=== PATIENT | male | born 1960 | race Caucasian/White ===

== ENCOUNTER 2021-02-22 10:49 | Inpatient (IN) | payer MEDICAID, OTHER ==
[~2021-02-22] VITALS: Ht 165.1 cm; Wt 56.1 kg
[2021-02-22 13:24] LABS: BASOPHILS % (AUTO) 0.5 % (0-1); EOSINOPHILS # (AUTO) 0.2 X10'3 (0-0.9); EOSINOPHILS % (AUTO) 2.3 % (0-6); HEMATOCRIT 41.3 % (42.0-52.0); HEMOGLOBIN 14.1 g/dl (14.0-17.9); LYMPHOCYTES # (AUTO) 1.4 X10'3 (1.1-4.8); MEAN CORPUSCULAR HEMOGLOBIN 33.2 PG (27.0-31.0); MEAN CORPUSCULAR HGB CONC 34.1 g/dL (33.0-36.5); MEAN CORPUSCULAR VOLUME 97.5 FL (78-98); MEAN PLATELET VOLUME 7.4 FL (7.4-10.4); MONOCYTES # (AUTO) 0.5 X10'3 (0-0.9); MONOCYTES % (AUTO) 6.8 % (2-12); NEUTROPHILS # (AUTO) 5.3 X10'3 (1.8-7.7); NEUTROPHILS % (AUTO) 71.4 % (42-75); PLATELET COUNT 272 X10'3 (140-440); RED BLOOD COUNT 4.24 X10'6 (4.70-6.10); RED CELL DISTRIBUTION WIDTH 13.9 % (11.5-14.5); WHITE BLOOD COUNT 7.4 X10'3 (4.5-11.0)
[2021-02-22 13:37] LABS: ALANINE AMINOTRANSFERASE 24 U/L (12-78); ALBUMIN 3.9 G/DL (3.4-5.0); ALBUMIN/GLOBULIN RATIO 1.1 (1.1-1.5); ALKALINE PHOSPHATASE 41 IU/L (46-116); ANION GAP 8 (8-16); ASPARTATE AMINO TRANSFERASE 28 U/L (10-37); BILIRUBIN,TOTAL 0.2 MG/DL (0.1-1.0); BLOOD UREA NITROGEN 16 MG/DL (7-18); BUN/CREATININE RATIO 16.8 (5.4-32.0); CALCIUM 8.6 MG/DL (8.5-10.1); CHLORIDE 111 MMOL/L (99-107); CREATININE 0.95 MG/DL (0.60-1.10); GLUCOSE 87 MG/DL (70-104); POTASSIUM 3.8 MMOL/L (3.5-5.1); SODIUM 147 MMOL/L (135-145); TOTAL CARBON DIOXIDE 27.9 MMOL/L (24-32); TOTAL PROTEIN 7.4 G/DL (6.4-8.2); eGFR 81 ML/MIN
[2021-02-22 13:44] LABS: ETHANOL 0.049 GM/DL (0.0-0.010)
--- NOTE | 2021-02-22 16:31 | NUR ---
Received patient to OF at 1610. Pt ambulated independently to bed #26. Pt presents as anxious, but is calm. Pt changed into green scrubs and belongings list completed. Pt was able to void for U/A, covid swab collected at this time. Addendum: 02/22/21 at 1643 by MICHAELA Pt reports having Covid 3 months ago.
[2021-02-22 16:47] LABS: URINE AMPHETAMINE SCREEN NEGATIVE (Neg); URINE BARBITUATE SCREEN NEGATIVE (Neg); URINE BENZODIAZEPINES SCREEN NEGATIVE (Neg); URINE CANNABINOID SCREEN NEGATIVE (Neg); URINE COCAINE SCREEN NEGATIVE (Neg); URINE METHADONE SCREEN NEGATIVE (Neg); URINE OPIATE SCREEN NEGATIVE (Neg); URINE PHENCYCLIDINE SCREEN NEGATIVE (Neg)
[2021-02-22 17:21] LABS: CLARITY,URINE CLEAR (Clear); COLOR,URINE YELLOW (Yellow); GLUCOSE, URINE NEGATIVE (Neg); PROTEIN,URINE TRACE mg/dl (Neg); UA COLLECTION TYPE VOIDED
[2021-02-22 17:22] LABS: KETONES,URINE NEGATIVE (Neg); LEUKOCYTE ESTERASE ,URINE NEGATIVE (Neg); NITRITES, URINE NEGATIVE (Neg); OCCULT BLOOD,URINE MODERATE (Neg); UROBILINOGEN,URINE 0.2 E.U/dL (0.2-1.0)
[2021-02-22 17:26] LABS: WBC,URINE 0-4 /HPF (0-4)
[2021-02-22 17:27] LABS: BACTERIA,URINE NONE SEEN /HPF (Neg); MUCUS STRANDS MANY /LPF (Neg); SQUAMOUS EPITHELIAL CELL,UR FEW /LPF (FEW)
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
--- NOTE | 2021-02-22 19:31 | NUR ---
Pt lying awake in bed with mask on. Pt is calm.
--- NOTE | 2021-02-22 19:34 | NUR ---
PACKET FAXED TO [facility].
[2021-02-22] MEDS ORDERED: NO HOME MEDS (20:13)
--- NOTE | 2021-02-23 01:38 | NUR ---
Pt moved to bed 15. Room safety maintained and all hazards secured. Pt resting. Sitter nearby.
--- NOTE | 2021-02-23 03:01 | NUR ---
Pt appears to be resting comfortably. Sitter nearby.
--- NOTE | 2021-02-23 04:56 | NUR ---
Pt resting. No apparent distress. Sitter nearby.
--- NOTE | 2021-02-23 07:40 | NUR ---
Moved pt from main ER to ER overflow at 0615. Pt settled in nicely and was cooperative with am assessment. Pt tearful and states he is very sad and depressed and does endorse S.I.
[2021-02-23] MEDS ORDERED: nicotine 21mg patch - 24 hr TD SCH (08:05)
--- NOTE | 2021-02-23 08:11 | NUR ---
updated facesheet sent to [facility] [id number]
--- NOTE | 2021-02-23 09:00 | NUR ---
Pt currently sleeping. Pt awoke and had breakfast and was cooperative with assessment by [facility].
--- NOTE | 2021-02-23 11:00 | NUR ---
Pt quietly sitting on edge of bed without complaints.
--- NOTE | 2021-02-23 13:00 | NUR ---
Pt sitting up eating lunch. No complaints.
[2021-02-23] MEDS ORDERED: mag hydrox/Alum hydrox/simeth 30ml oral suspension PO PRN (16:15)
[2021-02-23] MEDS ORDERED: magnesium hydroxide 30ml (MOM) UD suspension PO PRN (16:15)
[2021-02-23] MEDS ORDERED: acetaminophen 325mg tablet PO PRN ×2 (16:15)
[2021-02-23] MEDS ORDERED: loperamide 2mg capsule PO PRN (16:15)
[2021-02-23] MEDS ORDERED: traZODone 50mg tablet PO PRN (16:15)
[2021-02-23 16:30] VITALS: BP 168/86
--- NOTE | 2021-02-23 16:33 | NUR ---
Admission note: Pt admitted today to [facility] on a 5150 for DTS at 1602 escorted by security. Pt reports that he is "Depressed and suicidal". Pt states "I guarantee if I leave the hospital I will kill myself. I will overdose on pills." Pt just moved to [place] from [place]. Pt moved in with his ex girlfriend and her . Pt planned to overdose on benadryl. Pt has attempted suicide several times before. Pt has history of depression. Pt has been off of his antidepressants for a year. Addendum: 02/23/21 at 1804 by Taylor Nance RN Pt. scores as a high risk on the [employer] Suicide Risk Assessment, however he is able to contract for safety on the unit. This was endorsed to STEVEN Vail who ordered Q 15 min safety checks. Per STEVEN Vail, ILANA ordered.
[2021-02-23] MEDS: acetaminophen 325mg tablet PO PRN (16:56)
[2021-02-23] MEDS ORDERED: FLU VACC QS2021-22(6MOS UP)/PF 60 MCG/0.5 ML SYRINGE IM ONE (17:55)
[2021-02-23] MEDS: LORazepam 1 MG tablet PO PRN (18:24)
[2021-02-23] MEDS ORDERED: COVID-19 VACC, MRNA(PFIZER)/PF--BNT162b2 syringe IMVAC ONE (19:00)
[2021-02-23 20:00] VITALS: BP 131/85
[2021-02-23] MEDS: NICOTINE POLACRILEX 2 MG LOZENGE BC PRN (21:48)
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
[2021-02-24] MEDS: nicotine 21mg patch - 24 hr TD SCH (07:46)
[2021-02-24] MEDS: NICOTINE POLACRILEX 2 MG LOZENGE BC PRN ×3 (07:46→19:55)
--- NOTE | 2021-02-24 07:47 | NUR ---
FLU VACCINE NOT ADMINISTERED DUE TO PT HAVING FIRST COVID SHOT YESTERDAY. PT STATES, "I THOUGHT ABOUT IT LAST NIGHT AND THINK I SHOULD WAIT A FEW DAYS."
[2021-02-24 08:00] VITALS: BP 104/70
[2021-02-24 10:49] LABS: HEMOGLOBIN A1C 5.1 % (4.5-6.2)
[2021-02-24 10:59] LABS: CHOL/HDL RATIO 3.2 (0.00-4.99); CHOLESTEROL 195 MG/DL (0-200); HDL CHOLESTEROL 61 MG/DL (35-60); LDL CHOLESTEROL 104 MG/DL (50-100); TRIGLYCERIDES 108 MG/DL (20-135)
[2021-02-24] MEDS: LORazepam 1 MG tablet PO PRN (10:59)
[2021-02-24] MEDS ORDERED: sertraline 50mg tablet PO ONE (14:05)
--- NOTE | 2021-02-24 15:52 | NUR ---
Nursing Progress Note: Legal hold: 5150 Client on involuntary status for DTS Report received from nurse, OTTO Anaya with use of SBAR Why they are here: Pt admitted to [facility] for [facility] on a 5150 for DTS from the ER. Pt reports that he is "Depressed and suicidal". Pt states "I guarantee if I leave the hospital I will kill myself. I will OD on pills." Pt just moved to [place] from [place]. Pt moved in with his ex-girlfriend and her . Pt planned to overdose on Benadryl. Pt has attempted suicide several times before. Pt has history of depression. Pt has been off of his antidepressants for a year. Assessment What has happened this shift: Pt observed at the start of the shift pacing halls. He states, Just waiting for some coffee. Pt given coffee as requested. Pt later observed in the dayroom socializing with peers. CIWA completed for this shift. Pt reports, I have never been an alcoholic in fact I rarely drink. Pt. does report some anxiety, PRN Ativan administered with effectiveness. Pt started on a low dose of Zoloft to address his depression. Education provided. SI/HI: denies A/VH: denies Sleep: Pt slept after lunch ADL's: Independent Group attendance: N/A Were meds taken: Yes Any med S/E: N/A Mental Status Exam Appearance: Short, thin, elderly man with brown hair, nicely dressed jeans and a t-shirt, clean. Eye contact: Good Behavior: Cooperative, some anxiety Speech: audible, normal rate and rhythm Mood: Pleasant Affect: Blunted Thought process: Linear Thought Content: Perseveration on family left in [place] Cognition: A&O X4 Insight: Poor Judgment: Poor Interventions PRN's used: Ativan and Imodium Therapeutic interventions: Introduced self and established rapport, maintained a safe and supportive environment, ensured contract for safety, provided clear and simple instructions, monitored pt. using CIWA, and maintained Q 15min safety checks. Restraints/seclusion/emergency medication: N/A Justification of Continued Inpatient Treatment: Pt. requires interruption of current crisis, medication adjustments, and a safe and therapeutic environment.
[2021-02-24 19:00] VITALS: BP 134/85
[2021-02-24] MEDS: acetaminophen 325mg tablet PO PRN (19:55)
--- NOTE | 2021-02-24 23:58 | NUR ---
Nursing Progress Note: Legal hold: 5150 Client on involuntary status for DTS Report received from OTTO Espinal with use of SBAR Why they are here: Pt admitted to [facility] for [facility] on a 5150 for DTS from the ER. Pt reports that he is "Depressed and suicidal". Pt states "I guarantee if I leave the hospital I will kill myself. I will OD on pills." Pt just moved to [place] from [place]. Pt moved in with his ex-girlfriend and her . Pt planned to overdose on Benadryl. Pt has attempted suicide several times before. Pt has history of depression. Pt has been off of his antidepressants for a year. Assessment What has happened this shift: Patient observed laying in bed at the beginning of shift. Pleasant and cooperative with care; no scheduled medication this shift. CIWA discontinued per STEVEN Li. Patient denies SI, HI, A/VH; reports "just helpless and hopeless." Patient continued to explain he understands people are trying to help him but he feels that isn't doing any good. Patient does not wish to go back to previous living situations but explained, "I'll have to do whatever I have to." Patient briefly walked the unit; received PRN Nicotine lozenge and Tylenol per request. He is observed sleeping and does not appear to be having difficulty. SI/HI: Denies A/VH: Denies Sleep: Refer to sleep assessment ADL's: Independent Group attendance: NA Were meds taken: Yes Any med S/E: None observed or reported Mental Status Exam Appearance: Neat and appropriately dressed Eye contact: Good Behavior: Pleasant and cooperative, isolative Speech: Clear, audible, normal rate and rhythm Mood: "Helpless and hopeless" Affect: Depressed Thought process: Linear Thought Content: Meeting needs, not wanting to go back to previous living situations Cognition: A&O X4 Insight: Poor Judgment: Poor Interventions PRN's used: Tylenol and Nicotine lozenge Therapeutic interventions: Introduced self and established rapport, maintained a safe and supportive environment, ensured contract for safety, provided clear and simple instructions, monitored pt. using CIWA, and maintained Q 15min safety checks. Restraints/seclusion/emergency medication: NA Justification of Continued Inpatient Treatment: Pt. requires interruption of current crisis, medication adjustments, and a safe and therapeutic environment.
[2021-02-25 07:44] VITALS: BP 116/71
[2021-02-25] MEDS: nicotine 21mg patch - 24 hr TD SCH (07:44)
[2021-02-25] MEDS: sertraline 50mg tablet PO SCH (08:00)
[2021-02-25] MEDS ORDERED: hydrOXYzine 25 MG tablet PO PRN (14:35)
--- NOTE | 2021-02-25 15:28 | NUR ---
Nursing Progress Note: Legal hold: 5150 Client on involuntary status for DTS Report received from nurse, OTTO Anaya with use of SBAR Why they are here: Pt admitted to [facility] on a 5150 for DTS from the ER. Pt reports that he is "Depressed and suicidal". Pt states "I guarantee if I leave the hospital I will kill myself. I will OD on pills." Pt just moved to [place] from [place]. Pt moved in with his ex-girlfriend and her . Pt planned to overdose on Benadryl. Pt has attempted suicide several times before. Pt has history of depression. Pt has been off of his antidepressants for a year. Assessment What has happened this shift: Pt observed sleeping at the start of the shift. Pt up for meals. Pt later observed in the dayroom socializing with peers. Pt looking forward to talking to his social work job titles about housing. He calm and quiet today. He self-isolates most of the day. SI/HI: denies A/VH: denies Sleep: Pt slept most of the day ADL's: Independent Group attendance: N/A Were meds taken: Yes Any med S/E: N/A Mental Status Exam Appearance: Short, elderly man with brown hair, nicely dressed jeans and a t-shirt, clean. Eye contact: Good Behavior: Cooperative, self-isolates Speech: Clear, normal rate and rhythm Mood: Pleasant Affect: Blunted Thought process: Linear Thought Content: Perseveration on housing Cognition: A&O X4 Insight: Poor Judgment: Poor Interventions PRN's used: N/A Therapeutic interventions: Introduced self and established rapport, maintained a safe and supportive environment, ensured contract for safety, provided clear and simple instructions, monitored pt. using CIWA, and maintained Q 15min safety checks. Restraints/seclusion/emergency medication: N/A Justification of Continued Inpatient Treatment: Pt. requires interruption of current crisis, medication adjustments, and a safe and therapeutic environment.
[2021-02-25] MEDS: NICOTINE POLACRILEX 2 MG LOZENGE BC PRN (16:39)
[2021-02-25] MEDS: acetaminophen 325mg tablet PO PRN (16:39)
[2021-02-25 19:58] VITALS: BP 134/80
--- NOTE | 2021-02-26 00:53 | NUR ---
Nursing Progress Note: Legal hold: 5150 Client on involuntary status for DTS Report received from nurse, OTTO Rizo with use of SBAR Why they are here: Pt admitted to [facility] for [facility] on a 5150 for DTS from the ER. Pt reports that he is "Depressed and suicidal". Pt states "I guarantee if I leave the hospital I will kill myself. I will OD on pills." Pt just moved to [place] from [place]. Pt moved in with his ex-girlfriend and her . Pt planned to overdose on Benadryl. Pt has attempted suicide several times before. Pt has history of depression. Pt has been off of his antidepressants for a year. Assessment What has happened this shift: Patient was observed socializing with other patients at beginning of shift. Patient spent time drawing in community room and playing games with other patients. Patient participated in snack time and was asked if he wanted any PRNS before bed. Patient refused and went to bed. SI/HI: denies A/VH: denies Sleep: see sleep assessment ADL's: Independent Group attendance: N/A Were meds taken: Yes Any med S/E: N/A Mental Status Exam Appearance: Short, elderly man with brown hair, nicely dressed jeans and a t-shirt, clean. Eye contact: Good Behavior: Cooperative, Speech: Clear, normal rate and rhythm Mood: Pleasant Affect: Blunted Thought process: Linear Thought Content: Perseveration on housing Cognition: A&O X4 Insight: Poor Judgment: Poor Interventions PRN's used: N/A Therapeutic interventions: Introduced self and established rapport, maintained a safe and supportive environment, ensured contract for safety, provided clear and simple instructions, monitored pt. using CIWA, and maintained Q 15min safety checks. Restraints/seclusion/emergency medication: N/A Justification of Continued Inpatient Treatment: Pt. requires interruption of current crisis, medication adjustments, and a safe and therapeutic environment.
[2021-02-26 08:00] VITALS: BP 97/63
[2021-02-26] MEDS: sertraline 50mg tablet PO SCH (08:28)
[2021-02-26] MEDS: NICOTINE POLACRILEX 2 MG LOZENGE BC PRN ×3 (08:28→18:35)
[2021-02-26] MEDS: nicotine 21mg patch - 24 hr TD SCH (08:28)
--- NOTE | 2021-02-26 14:58 | NUR ---
CM/DCP Presenting Issues: Pt's 5150 will later this afternoon, pt request assistance w/dcp activities as he has limited resources and is homeless. Interventions: SS met w/pt and engaged him in dcp activities, provided info re emergency fdc options in [place]. Per discussion, pt will consider d/c-ing to the [facility], will need a prescription meds discount card upon d/c. Plan: Pt to d/c in a day or 2 and will go back to [facility]. Kylah Nicole LCSW Addendum: 02/26/21 at 1510 by Kylah Nicole Amended: Links added.
--- NOTE | 2021-02-26 17:38 | NUR ---
Nursing Progress Note: Antoine Shay Legal hold: 5150 Client on involuntary status for DTS Report received from nurse, OTTO Paniagua with use of SBAR Why they are here: Pt admitted to [facility] for [facility] on a 5150 for DTS from the ER. Pt reports that he is "Depressed and suicidal". Pt states "I guarantee if I leave the hospital I will kill myself. I will OD on pills." Pt just moved to [place] from [place]. Pt moved in with his ex-girlfriend and her . Pt planned to overdose on Benadryl. Pt has attempted suicide several times before. Pt has history of depression. Pt has been off of his antidepressants for a year. Assessment What has happened this shift: Patient was observed walking around the unit at change of shift. He approached this fiction writer first thing this morning asking for a nicotine lozenge. He presents as social, polite, pleasant, and cooperative with care. He joined in the community room with peers for breakfast. He endorsed to this fiction writer that he is doing good today. He is compliant with all medications. Patient observed sitting in the community room with a peer after breakfast, socializing and drawing a picture. He endorsed to this fiction writer that he enjoys coloring to get his mind off of things and that it is one of his coping skills. He denies SI/HI, AH or VH. Does not appear to be responding to internal stimuli. He spent the majority of the day socializing with peers, sitting in the community room. He approached this fiction writer later in the day with a large grin on his face, showing off the beautiful picture that he jonathan with an uplifting message written at the bottom. He was polite, appropriate, and active on the unit today. He participated for all meals/snacks in the community room today. SI/HI: Denies A/VH: Denies. Does not appear to be responding to internal stimuli. Sleep: Pt slept 7.5 hours last night per NOC shift, no naps noted today ADL's: Independent Group attendance: No group provided today Were meds taken: Yes Any med S/E: None observed or reported Mental Status Exam Appearance: Short, elderly man with brown hair, nicely dressed jeans and a t-shirt, clean. Eye contact: Good Behavior: Cooperative, social, polite Speech: Clear, normal rate and rhythm Mood: Doing good, Pleasant Affect: Full range Thought process: Linear Thought Content: Meeting needs. Socializing with peers. Cognition: A&O x4 Insight: Fair Judgment: Fair Interventions PRN's used: N/A Therapeutic interventions: Introduced self and established rapport, maintained a safe and supportive environment, ensured contract for safety, provided clear and simple instructions, and maintained Q 15 min safety checks. Restraints/seclusion/emergency medication: N/A Justification of Continued Inpatient Treatment: Pt. requires interruption of current crisis, medication adjustments, and a safe and therapeutic environment.
[2021-02-26 20:20] VITALS: BP 142/78
--- NOTE | 2021-02-27 02:34 | NUR ---
Nursing Progress Note: Legal hold: 5150 Client on involuntary status for DTS Report received from OTTO Espinal with use of SBAR Why they are here: Pt admitted to [facility] for [facility] on a 5150 for DTS from the ER. Pt reports that he is "Depressed and suicidal". Pt states "I guarantee if I leave the hospital I will kill myself. I will OD on pills." Pt just moved to [place] from [place]. Pt moved in with his ex-girlfriend and her . Pt planned to overdose on Benadryl. Pt has attempted suicide several times before. Pt has history of depression. Pt has been off of his antidepressants for a year. Assessment What has happened this shift: The patient was found in the community room. He's sitting with a female peer, and they're both drawing and coloring. He's quite friendly and sociable as he talks about his love for drawing, and how it began. He denies AV/H and HI, but is still passively suicidal. The patient is homeless and far from home, he feels a little helpless, but is not hopeless. He has a pretty good attitude. Patient has no scheduled HS meds, but requested nicotine lozenges. He has been asleep since ~2200. SI/HI: Denies A/VH: Denies Sleep: Refer to sleep assessment ADL's: Independent Group attendance: NA Were meds taken: Yes Any med S/E: None observed or reported Mental Status Exam Appearance: Neat and appropriately dressed in his own clothes Eye contact: Good Behavior: Pleasant and cooperative, sociable Speech: Clear, audible, normal rate and rhythm Mood: "Helpless" Affect: Depressed Thought process: Linear Thought Content: Meeting needs, not wanting to go back to previous living situations Cognition: A&O X4 Insight: Poor Judgment: Poor Interventions PRN's used: Nicotine lozenge Therapeutic interventions: Introduced self and established rapport, maintained a safe and supportive environment, ensured contract for safety, provided clear and simple instructions, monitored pt. using CIWA, and maintained Q 15min safety checks. Restraints/seclusion/emergency medication: NA Justification of Continued Inpatient Treatment: Pt. requires interruption of current crisis, medication adjustments, and a safe and therapeutic environment.
[2021-02-27 08:00] VITALS: BP 106/64
[2021-02-27] MEDS: sertraline 50mg tablet PO SCH (08:15)
[2021-02-27] MEDS: nicotine 21mg patch - 24 hr TD SCH (08:16)
[2021-02-27] MEDS: NICOTINE POLACRILEX 2 MG LOZENGE BC PRN ×2 (08:28→16:45)
[2021-02-27] MEDS: acetaminophen 325mg tablet PO PRN (09:41)
[2021-02-27] MEDS ORDERED: FLU VACC QS2021-22(6MOS UP)/PF 60 MCG/0.5 ML SYRINGE IM ONE (10:00)
--- NOTE | 2021-02-27 13:27 | NUR ---
Initial: Pt admit for depression with SI. Currently on a regular diet and eating well with mostly 75-100% PO intake. LBM 02/26, with PRN bowel care available. No nutrition diagnosis at this time. Will continue to follow. Recommendations: 1) Continue regular diet 2) Bowel care PRN 3) Scaled weight this admit; weekly scaled weights thereafter Addendum: 02/27/21 at [address] Amended: Links added.
--- NOTE | 2021-02-27 13:39 | NUR ---
Pt. attended group today. Todays group was about the difference between Growth Mindset vs. Fixed Mindset. We learned about the differences and then discussed what aspect of developing a growth mindset they wanted to work on. Pt engaged well in the group. He was open and friendly with his peers and this Weather Algorithm Scientist. He was alert and oriented X 4. His thought content and thought process was WNL. He shared frequently in the group, his thoughts were in line with what he were talking about in the group and insightful. He reported that moving forward he plans to let go of frustration and wants to hold on to hope. He is believing things will change and that he has to take baby steps to move forward. He appeared to enjoy the interaction of the group. Bonnie Harrington LCSW
--- NOTE | 2021-02-27 17:22 | NUR ---
Nursing Progress Note: Antoine Shay Legal hold: Voluntary Client on involuntary status for DTS Report received from nurse, Alley RN with use of SBAR Why they are here: Pt admitted to [facility] for Behavioral health on a 5150 for DTS from the ER. Pt reports that he is "Depressed and suicidal". Pt states "I guarantee if I leave the hospital I will kill myself. I will OD on pills." Pt just moved to [place] from [place]. Pt moved in with his ex-girlfriend and her . Pt planned to overdose on Benadryl. Pt has attempted suicide several times before. Pt has history of depression. Pt has been off of his antidepressants for a year. Assessment What has happened this shift: Patient was observed sleeping in bed at shift change. He was awoken to join in the community room with peers for breakfast. He is compliant with all medications. Patient was observed sitting in the community room with a peer the majority of the morning. He is social and friendly with other patients on the unit. Patient endorsed lower back pain from a previous fall that took place in 2014. He was given PRN Tylenol for back pain at approximately 0943 with effectiveness. He denies SI/HI, AH or VH. Does not appear to be responding to internal stimuli. Patient presents as linear and cooperative with care. He participated in group therapy and art therapy today, noted interacting and participating appropriately with peers. He spent the majority of the day socializing with peers and sitting in the community room. He took a shower on this shift, dressed in clean clothing with clean linen applied to bed. He was polite, appropriate, and active on the unit today. He participated for all meals/snacks in the community room. SI/HI: Denies A/VH: Denies. Does not appear to be responding to internal stimuli. Sleep: Pt slept 7.75 hours last night per NOC shift, no naps noted today ADL's: Independent Group attendance: Yes Were meds taken: Yes Any med S/E: None observed or reported Mental Status Exam Appearance: Clean, showered today, elderly man with brown hair, nicely dressed in jeans and t-shirt Eye contact: Good Behavior: Cooperative, social, polite Speech: Clear, normal rate and rhythm Mood: Doing good, Pleasant Affect: Full range Thought process: Linear Thought Content: Meeting needs. Socializing with peers. Cognition: A&O x4 Insight: Fair Judgment: Fair Interventions PRN's used: Nicotine lozenge, PRN Tylenol Therapeutic interventions: Maintained a safe and supportive environment, therapeutic communication, ensured contract for safety, provided clear and simple instructions, and maintained Q 15 min safety checks. Restraints/seclusion/emergency medication: N/A Justification of Continued Inpatient Treatment: Pt. requires interruption of current crisis, medication adjustments, and a safe and therapeutic environment.
--- NOTE | 2021-02-27 18:17 | NUR ---
Group Art Tx Continued: Patient was engaged and able to complete both activities. He maintained the topic of discussion and presented as positive and hopeful re: His ability to cope and move forward with his life after D/C. He was interactive and positive w/ his peers. He has been engaged both prior and after group with the making of his art while engaging in conversation w/ other peers. *Please refer to the [facility] Case Notes for entire overview. Yara Lovelace MA, [employer] #[id number] [facility], Art Therapist Addendum: 02/27/21 at 1820 by Yara AUGUST Amended: Links added.
[2021-02-27 19:54] VITALS: BP 137/71
--- NOTE | 2021-02-27 20:45 | NUR ---
removed nicotine patch
--- NOTE | 2021-02-27 23:27 | NUR ---
Nursing Progress Note: Antoine Jaspal Legal hold: Voluntary Client on involuntary status for DTS Report received from nurse, ACE Espinal with use of SBAR Why they are here: Pt admitted to [facility] for Behavioral health on a 5150 for DTS from the ER. Pt reports that he is "Depressed and suicidal". Pt states "I guarantee if I leave the hospital I will kill myself. I will OD on pills." Pt just moved to [place] from [place]. Pt moved in with his ex-girlfriend and her . Pt planned to overdose on Benadryl. Pt has attempted suicide several times before. Pt has history of depression. Pt has been off of his antidepressants for a year. Assessment What has happened this shift: Pt was in the group room reading a book at change of shift. Pt spent evening socializing with peers and appears to be in a pleasant mood. Pt requests prn nicotine lozenge but declines meds for sleep even though reporting sleep issues. Pt states sometimes he has trouble falling asleep but mostly he wakes up every night to use the bathroom a couple of times. Pt states he saw a doctor but they found nothing for this issue. Pt states trazodone 50mg is too much for him and makes him feel too groggy the next day so he declines a sleeping pill. SI/HI: Denies A/VH: Denies. Does not appear to be responding to internal stimuli. Sleep: see sleep hours pt reports waking to use the toilet a "couple of times" each night ADL's: Independent Group attendance: Yes Were meds taken: Yes Any med S/E: None observed or reported Mental Status Exam Appearance: Clean, showered today, elderly man with brown hair, nicely dressed in jeans and t-shirt Eye contact: Good Behavior: Cooperative, social, polite Speech: Clear, normal rate and rhythm Mood: Pleasant Affect: Full range Thought process: Linear Thought Content: Meeting needs. Socializing with peers. Cognition: A&O x4 Insight: Fair Judgment: Fair Interventions PRN's used: Nicotine lozenge, Therapeutic interventions: Maintained a safe and supportive environment, therapeutic communication, ensured contract for safety, provided clear and simple instructions, and maintained Q 15 min safety checks. Restraints/seclusion/emergency medication: N/A Justification of Continued Inpatient Treatment: Pt. requires interruption of current crisis, medication adjustments, and a safe and therapeutic environment.
[2021-02-28] MEDS: sertraline 50mg tablet PO SCH (08:07)
[2021-02-28] MEDS: nicotine 21mg patch - 24 hr TD SCH (08:08)
[2021-02-28] MEDS: acetaminophen 325mg tablet PO PRN (08:13)
[2021-02-28] MEDS: NICOTINE POLACRILEX 2 MG LOZENGE BC PRN ×2 (08:58→17:20)
[2021-02-28 09:01] VITALS: BP 90/57
[2021-02-28] MEDS ORDERED: loratadine 10mg tablet PO ONE (10:35)
--- NOTE | 2021-02-28 15:07 | NUR ---
Pt. attended group today. The topic today was identifying the triggers, signs and symptoms of an upcoming episode/event so that Pts. can learn to apply coping skills before they get to a bad place with their symptoms. Pt. engaged in the group appropriately. He was alert and oriented X 4. His thought content and thought process was WNL. He shared that he doesn't feel that he has much coping skills but did share that he recognizes his triggers and warning signs. He reported his triggers being when people bring up his past. His demeanor was calm and compliant and pleasant to work with. He appeared to enjoy group and was very open and friendly to his peers. He seemed to want to work on himself. He also reported he struggles to trust people therefore does not have a good support system in place. Bonnie Harrington, SUPERVISOR [employer]
--- NOTE | 2021-02-28 17:10 | NUR ---
Nursing Progress Note: Antoine Shay Legal hold: Voluntary Client on involuntary status for DTS Report received from nurse, Alley RN with use of SBAR Why they are here: Pt admitted to [place] for Behavioral health on a 5150 for DTS from the ER. Pt reports that he is "Depressed and suicidal". Pt states "I guarantee if I leave the hospital I will kill myself. I will OD on pills." Pt just moved to [place] from [place]. Pt moved in with his ex-girlfriend and her . Pt planned to overdose on Benadryl. Pt has attempted suicide several times before. Pt has history of depression. Pt has been off of his antidepressants for a year. Assessment What has happened this shift: Patient was noted sleeping in his room at change of shift. He joined for breakfast in the community room with peers, noted socializing appropriately. He is compliant with all medications. Patient c/o headache pain this morning and was given PRN Tylenol at 0813 with effectiveness. He was observed sitting in community room with another peer after breakfast, putting together a puzzle and socializing. He continues to be social and friendly with other patients on the unit. He denies SI/HI, AH or VH. Does not appear to be responding to internal stimuli. He participated in group therapy today, noted interacting and participating appropriately with peers. He spent the majority of the day socializing with peers in the community room. Patient continues to present as linear and cooperative with care. He was polite, appropriate, and active on the unit today. Patient participated with peers on the outside patio later in the day. He participated for all meals/snacks in the community room. SI/HI: Denies A/VH: Denies. Does not appear to be responding to internal stimuli. Sleep: Pt slept 7 hours last night per NOC shift, no naps noted today ADL's: Independent Group attendance: Yes Were meds taken: Yes Any med S/E: None observed or reported Mental Status Exam Appearance: Neat, elderly man with brown hair, nicely dressed in jeans and t-shirt Eye contact: Good Behavior: Cooperative, social, polite Speech: Clear, normal rate and rhythm Mood: Pleasant Affect: Full range Thought process: Linear Thought Content: Meeting needs. Socializing with peers. Cognition: A&O x4 Insight: Fair Judgment: Fair Interventions PRN's used: Nicotine lozenge, PRN Tylenol Therapeutic interventions: Maintained a safe and supportive environment, therapeutic communication, ensured contract for safety, provided clear and simple instructions, and maintained Q 15 min safety checks. Restraints/seclusion/emergency medication: N/A Justification of Continued Inpatient Treatment: Pt. requires interruption of current crisis, medication adjustments, and a safe and therapeutic environment.
[2021-02-28 19:38] VITALS: BP 139/66
--- NOTE | 2021-02-28 23:43 | NUR ---
Nursing Progress Note: Antoine Jaspal Legal hold: Voluntary Client on involuntary status for DTS Report received from nurseTeddy RN with use of SBAR Why they are here: Pt admitted to [facility] [place] for Behavioral health on a 5150 for DTS from the ER. Pt reports that he is "Depressed and suicidal". Pt states "I guarantee if I leave the hospital I will kill myself. I will OD on pills." Pt just moved to [place] from [place]. Pt moved in with his ex-girlfriend and her . Pt planned to overdose on Benadryl. Pt has attempted suicide several times before. Pt has history of depression. Pt has been off of his antidepressants for a year. Assessment What has happened this shift: Pt was in group room at change of shift, socializing with peers. Pt is pleasant, cooperative. Pt talks about working a lot. Pt requests prn nicotine lozenge. Pt reports he has been sleeping well and has no needs at this time. SI/HI: Denies A/VH: Denies. Does not appear to be responding to internal stimuli. Sleep: see sleep hours ADL's: Independent Group attendance: Yes Were meds taken: Yes Any med S/E: None observed or reported Mental Status Exam Appearance: Neat, elderly man with brown hair, nicely dressed in jeans and t-shirt Eye contact: Good Behavior: Cooperative, social, polite Speech: Clear, normal rate and rhythm Mood: Pleasant Affect: congruent Thought process: Linear Thought Content: Meeting needs. Socializing with peers. Cognition: A&O x4 Insight: Fair Judgment: Fair Interventions PRN's used: Nicotine lozenge, Therapeutic interventions: Maintained a safe and supportive environment, therapeutic communication, ensured contract for safety, provided clear and simple instructions, and maintained Q 15 min safety checks. Restraints/seclusion/emergency medication: N/A Justification of Continued Inpatient Treatment: Pt. requires interruption of current crisis, medication adjustments, and a safe and therapeutic environment.
[2021-03-01] MEDS: nicotine 21mg patch - 24 hr TD SCH (07:45)
[2021-03-01] MEDS: sertraline 50mg tablet PO SCH (07:45)
[2021-03-01 08:00] VITALS: BP 113/64
[2021-03-01] MEDS ORDERED: loratadine 10mg tablet PO SCH (08:00)
[2021-03-01] MEDS ORDERED: HYDR-3686 PO (11:04)
[2021-03-01] MEDS ORDERED: LORA10TA65 PO (11:04)
[2021-03-01] MEDS ORDERED: SERT-433 PO (11:04)
[2021-03-01] MEDS: NICOTINE POLACRILEX 2 MG LOZENGE BC PRN (11:05)
--- NOTE | 2021-03-01 14:00 | NUR ---
Pt. discharged to [facility] via county pickup driver. Pt. signed all discharge paperwork and agrees with f/u plan. Pt. A&Ox4 and in no apparent distress. Pt. denies SI/HI, A/V hallucinations. Pt. discharged with all belongings and valuables.
== END 2021-03-01 14:00 | disposition home or self-care (01) | DRG 751 ==
LOC: ER 10:50 → ED HOLD 02-23 15:00 → ADULT MH 02-23 15:01
PROVIDERS: ADMIT Psychiatry & Neurology Psychiatry; ATTEND Psychiatry & Neurology Psychiatry
PROC: XW023U6 Introduction of COVID-19 Vaccine into Muscle, Percutaneous Approach, New Technology Group 6 (ICD-10-PCS; principal; 2021-02-23)
PROC: 3E02340 Introduction of Influenza Vaccine into Muscle, Percutaneous Approach (ICD-10-PCS; 2021-02-27)
DX: F33.2 Major depressive disorder, recurrent severe without psychotic features (principal); E87.0 Hyperosmolality and hypernatremia; R45.851 Suicidal ideations; Z20.822 Contact with and (suspected) exposure to COVID-19; F17.210 Nicotine dependence, cigarettes, uncomplicated; Z82.5 Family history of asthma and other chronic lower respiratory diseases; Z91.410 Personal history of adult physical and sexual abuse; Z59.02 Unsheltered homelessness; Z91.51 Personal history of suicidal behavior; Z23 Encounter for immunization; Z88.5 Allergy status to narcotic agent; Z71.6 Tobacco abuse counseling; Z90.49 Acquired absence of other specified parts of digestive tract
CPT/HCPCS: 0001A; 36415; 80053; 80061; 80305; 80320; 81001; 83036; 84443; 85025; 87081; 87635; 90471; 91300; 99285; C9803